=== PATIENT | female | born 1955 | race Caucasian/White ===

== ENCOUNTER 2024-05-09 11:45 | Day surgery (SDC) | payer OTHER, MEDICAID, SELFPAY ==
--- NOTE | 2024-05-08 09:18 | EKG_ITS ---
[facility] Test Date: 2024-05-08 Pat Name: CHRISTY COLLINS Department: Room: - Gender: Female [employer]: YANI : 1955 Requested By: Edmar Velasquez Order Number: [id number] Reading MD: Edmar Velasquez Measurements Intervals Emerson Rate: 84 P: 57 HI: 221 QRS: 9 QRSD: 128 T: 14 QT: 376 QTc: 446 Interpretive Statements SINUS RHYTHM WITH FIRST DEGREE AV BLOCK RIGHT BUNDLE BRANCH BLOCK No previous ECG available for comparison /[id number]
[2024-05-08 11:51] LABS: Alanine Aminotransferase 16 U/L (10-49); Albumin, Serum 4.4 gm/dL (3.4-4.8); Albumin/Globulin Ratio 1.8 (1.2-2.2); Alkaline Phosphatase 78 U/L (46-116); Anion Gap 8 (7-16); Aspartate Amino Transferase < 8 U/L (0-34); BUN/Creatinine Ratio 21 Ratio (12-20); Bilirubin,Total 0.8 mg/dL (0.3-1.2); Blood Urea Nitrogen 15 mg/dL (9-23); Calcium 9.8 mg/dL (8.3-10.6); Calcium (Corrected) 9.8 mg/dL (8.5-10.1); Carbon Dioxide 32.1 mMol/L (20.0-31.0); Chloride 101 mMol/L (98-107); Creatinine (Component) 0.7 mg/dL (0.6-1.3); Globulin 2.4 gm/dL (2.3-3.5); Glucose 108 mg/dL (74-106); Osmolality,Calculated 283 (275-295); Potassium 4.4 mMol/L (3.4-5.1); Sodium 141 mMol/L (136-145); Total Protein 6.8 gm/dL (5.7-8.2); eGFR > 60 See Note
[2024-05-09 12:20] VITALS: BP 156/83; PULSE 78; RESP 16; TEMP 36.3; O2SAT 97; BMI 44.7
[2024-05-09] MEDS: SODIUM CHLORIDE 0.9% 500 ML 500 ML 20 ML IV (12:48)
[2024-05-09 16:10] VITALS: BP 112/64; PULSE 71; RESP 16; TEMP 36.1; O2SAT 96
--- NOTE | 2024-05-09 16:10 | SUR.PHASEII ---
pt received from OR in recovery bay 1. pt asleep but responds to voice, breathing unlabored on 2l oxymask. v/s stable. report received from Dr. Velasquez and Simona TIM.
[2024-05-09 16:15] VITALS: BP 106/70; PULSE 69; RESP 14; TEMP 36.1; O2SAT 96
[2024-05-09 16:20] VITALS: BP 117/67; PULSE 71; RESP 12; TEMP 36.2; O2SAT 96
[2024-05-09 16:25] VITALS: BP 118/70; PULSE 76; RESP 14; TEMP 36.2; O2SAT 96
--- NOTE | 2024-05-09 16:25 | SUR.PHASEII ---
pt able to tolerate oral fluids without difficulty swallowing or nausea/vomiting.
[2024-05-09 16:40] VITALS: BP 134/77; PULSE 70; RESP 19; TEMP 36.2; O2SAT 96
--- NOTE | 2024-05-09 16:55 | SUR.PHASEII ---
pt awake and alert, breathing unlabored on room air. v/s stable. pt able to ambulate to wheelchair with steady gait. d/c instructions given with director career services Flor in room, all questions answered. pt d/c via wheelchair with all belongings.
== END 2024-05-09 16:55 | disposition home or self-care (01) ==
PROVIDERS: Anesthesiology; PCP Internal Medicine; Referring Provider Internal Medicine Gastroenterology; Visit Provider Internal Medicine Gastroenterology
PROC: (CPT 43239; principal; 2024-05-09 13:30)
DX: K22.4 Dyskinesia of esophagus (principal); K44.9 Diaphragmatic hernia without obstruction or gangrene; K29.70 Gastritis, unspecified, without bleeding; Z01.810 Encounter for preprocedural cardiovascular examination; E11.9 Type 2 diabetes mellitus without complications
CPT/HCPCS: 43239; 36415; 80053; 93005; A4649; J2250; J2704; J3010; J7040